=== PATIENT | male | born 1960 | race Caucasian/White ===

== ENCOUNTER → 2016-07-18 | Outpatient (CLI) | payer BC ==
[2016-07-18 08:48] LABS: CH 29.3; CHCM 35.6; HCT 39.8 % (39.0-53.0); HDW 3.11; MCH 29.1 pg (25.0-35.0); MCHC 35.2 g/dL (31.0-37.0); MCV 82.6 fL (80.0-100.0); Mean Platelet Volume 8.2; RBC 4.83 m/uL (4.30-5.90); WBC 5.6 k/uL (3.8-10.6)
[2016-07-18 09:18] LABS: ALT 35 U/L (21-72); AST 25 U/L (17-59); Alkaline Phosphatase 59 U/L (38-126); Anion Gap 10 mmol/L; Blood Urea Nitrogen 18 mg/dL (9-20); Calcium 9.5 mg/dL (8.4-10.2); Carbon Dioxide 28 mmol/L (22-30); Chloride 105 mmol/L (98-107); Cholesterol 299 mg/dL (<200); Glucose 134 mg/dL (74-99); HDL Cholesterol 37 mg/dL (40-60); Non-African American GFR(MDRD) >60 (>60 ml/min/1.73 sqM); Potassium 3.8 mmol/L (3.5-5.1); Sodium 143 mmol/L (137-145); Total Bilirubin 0.7 mg/dL (0.2-1.3); Total Protein 7.2 g/dL (6.3-8.2)
[2016-07-18 09:52] LABS: Triglycerides 1155 mg/dL (<150)
--- NOTE | 2016-07-18 10:42 | XR ---
EXAMINATION TYPE: XR Hip Complete RT DATE OF EXAM: 07/18/2016 8:49 AM COMPARISON: NONE HISTORY: Right hip pain, fall TECHNIQUE: 2V right hip FINDINGS: No acute fractures are evident. Femoral head articulates with the acetabulum. Joint spaces preserved. IMPRESSION: 1. Normal 2 view right hip
== END | disposition home or self-care (01) ==
LOC: LABWHC1 08:06
PROVIDERS: ATTEND Family Medicine
DX: M25.551 Pain in right hip (principal); F52.21 Male erectile disorder; I10 Essential (primary) hypertension
CPT/HCPCS: 36415; 73502; 80053; 80061; 84439; 84443; 85027

== ENCOUNTER → 2023-10-19 | Outpatient (CLI) | payer BC ==
[2023-10-19 18:29] LABS: Basophils # (A) 0.04 X 10*3/uL (0.00-0.10); Basophils % (A) 0.6 %; Eosinophils # (A) 0.14 X 10*3/uL (0.04-0.35); Eosinophils % (A) 2.1 %; HCT 35.3 % (39.6-50.0); HGB 12.2 g/dL (13.0-17.0); Lymphocytes # (A) 1.55 X 10*3/uL (0.90-5.00); Lymphocytes % (A) 23.5 %; MCH 29.2 pg (27.0-32.0); MCHC 34.6 g/dL (32.0-37.0); MCV 84.4 FL (80.0-97.0); Mean Platelet Volume 12.1 FL (9.5-12.2); Monocytes # (A) 0.49 X 10*3/uL (0.20-1.00); Monocytes % (A) 7.4 %; NRBC Per 100 WBC 0 X 10*3/uL (0.00-0.01); Neutrophils # (A) 4.35 X 10*3/uL (1.80-7.70); Neutrophils % (A) 65.9 %; Platelet Count 198 X 10*3/uL (140-440); RBC 4.18 X 10*6/uL (4.40-5.60); RDW 12.7 % (11.5-14.5)
== END | disposition home or self-care (01) ==
LOC: LABPAT 14:13
PROVIDERS: ATTEND Surgery
DX: Z01.818 Encounter for other preprocedural examination (principal); I49.3 Ventricular premature depolarization; K40.90 Unilateral inguinal hernia, without obstruction or gangrene, not specified as recurrent; R94.31 Abnormal electrocardiogram [ECG] [EKG]
CPT/HCPCS: 85025; 86850; 86900; 86901; 93005

== ENCOUNTER 2023-12-08 10:41 | Day surgery (SDC) | payer SELFPAY ==
[~2023-12-08 10:41] MED LIST: HYDROmorphone 0.5 MG/0.5 ML SYRINGE IVP PRN; LACTATED RINGERS 1,000 ML IV SCH; LIDOCAINE 1% (10MG/ML) FOR IV START INTRADERMA PRN; fentaNYL (PF) 50 MCG/ML 2 ML AMP IVP PRN
[2023-12-08 11:09] VITALS: TEMP 97.6
[2023-12-08] MEDS: IV FLUID CONTINUATION 1,000 ML IV ONE (11:22)
[2023-12-08 11:26] LABS: Glucose,Whole Blood 149 mg/dL (70-110)
[2023-12-08] MEDS: MIDAZOLAM 2 MG/2 ML VIAL IV PRN (11:44)
[2023-12-08] MEDS: HEPARIN SODIUM,PORCINE 5,000 UNIT/ML 1 ML VIAL SQ PRN (12:04)
[2023-12-08] MEDS: ONDANSETRON 4 MG/2 ML VIAL IVP ONE (12:04)
[2023-12-08] MEDS: DEXAMETHASONE SOD PHOSPHATE 4 MG/ML 1 ML VIAL IV ONE (12:04)
[2023-12-08] MEDS: ACETAMINOPHEN TAB 500 MG TAB PO PRN (12:06)
--- NOTE | 2023-12-08 12:13 | P.GSHP ---
History of Present Illness H&P Date: 12/08/23 Chief Complaint: Right inguinal hernia Is a 63-year-old male who has complaints of right groin pain. Patient was found to have a right inguinal hernia. Past Medical History Past Medical History: Diabetes Mellitus, Hyperlipidemia, Hypertension, Prostate Disorder Additional Past Medical History / Comment(s): bph, hernia to rt groin History of Any Multi-Drug Resistant Organisms: None Reported Past Surgical History: No Surgical Hx Reported Additional Past Anesthesia/Blood Transfusion Reaction / Comment(s): no hx of anesthesia Smoking Status: Never smoker - Past Family History Father Family Medical History: Hypertension, Myocardial Infarction ([place]) Mother Family Medical History: Cancer, Hypertension Additional Family Medical History / Comment(s): breast cancer Medications and Allergies Home Medications Medication Instructions Recorded Confirmed Type Atorvastatin [Lipitor] 20 mg PO DAILY 10/22/23 12/07/23 History Tamsulosin [Flomax] 0.4 mg PO DAILY 10/22/23 12/08/23 History Unk Aleve 1 tab PO DIRECTED PRN 10/22/23 12/07/23 History amLODIPine 10 mg PO DAILY 10/22/23 12/08/23 History cloNIDine HCL [Clonidine HCl] 0.1 mg PO TID 10/22/23 12/08/23 History hydrALAZINE HCL 50 mg PO TID 10/22/23 12/07/23 History metFORMIN HCL [metFORMIN HCL ER] 750 mg PO BID 10/22/23 12/07/23 History Allergies Allergy/AdvReac Type Severity Reaction Status Date / Time Penicillins Allergy Swelling Verified 12/08/23 11:00 wool Allergy rash, Verified 12/08/23 11:00 swelling Surgical - Exam Vital Signs Temp Pulse Resp BP Pulse Ox 97.6 F 83 18 154/80 97 12/08/23 11:06 12/08/23 11:06 12/08/23 11:06 12/08/23 11:06 12/08/23 11:06 - General well developed, well nourished, no distress - Eyes PERRL - ENT normal pinna - Neck no masses - Respiratory normal expansion - Cardiovascular Rhythm: regular - Abdomen Abdomen: soft, non tender Hernia: inguinal (Reducible right inguinal hernia) - Genitourinary normal penis with no external lesions Results - Labs Abnormal Lab Results - Last 24 Hours (Table) 12/08/23 Range/Units 11:19 POC Glucose (mg/dL) 149 H (70-110) mg/dL Assessment and Plan Assessment: Radial hernia. Will perform laparoscopic robotic assisted repair.
[2023-12-08] MEDS: LIDOCAINE 1%-EPI 1:100,000 20 ML VIAL SQ ONE ×2 (12:20)
--- NOTE | 2023-12-08 12:24 | P.ANPRN ---
Procedure Note - Anesthesia - Nerve Block Performed Bilateral Erector Spinae Single Time Out Performed: Yes Date of Procedure: 12/08/23 Procedure Start Time: 11:43 Procedure Stop Time: 11:48 Location of Patient: PreOp Indication: Acute Post-Operative Pain, Analgesia, Requested by Surgeon Sedation Type: Sedate with meaningful contact maintained Preparation: Sterile Prep Position: Prone Catheter: None Needle Types: Pajunk Needle Gauge: 21 Ultrasound used to visualize needle placement: Yes Ultrasound used to observe medication spread: Yes Injectate: 0.5% Ropivacaine (see comment for volume) (Ropiv 20ml+Decadron 4mg----Each side. Needle level T11) Blood Aspirated: No Pain Paresthesia on Injection Noted: No Resistance on Injection: Normal Image Stored and Saved: Yes Events: Uneventful and Well Tolerated
[2023-12-08] MEDS ORDERED: ROCURONIUM 10 MG/ML (5 ML VIAL) IV ONE (12:34)
[2023-12-08] MEDS ORDERED: GLYCOPYRROLATE 0.2 MG/ML 2 ML VIAL ONE (12:34)
[2023-12-08] MEDS ORDERED: PROPOFOL 10 MG/ML 20 ML VIAL IV ONE (12:34)
[2023-12-08] MEDS ORDERED: DEXAMETHASONE SOD PHOSPHATE 4 MG/ML 1 ML VIAL ONE (12:34)
[2023-12-08] MEDS ORDERED: LIDOCAINE 1% INJ 10MG/ML (20 ML MDV) ONE (12:34)
[2023-12-08] MEDS ORDERED: KETAMINE HCL IN 0.9 % NACL 50 MG/5 ML SYRINGE ONE (12:34)
[2023-12-08] MEDS ORDERED: KETOROLAC 15 MG/ML 1 ML VIAL ONE (12:34)
[2023-12-08] MEDS ORDERED: fentaNYL (PF) 50 MCG/ML 2 ML AMP ONE (12:34)
[2023-12-08] MEDS ORDERED: ROPIVACAINE 5 MG/ML 30 ML VIAL ONE (12:34)
[2023-12-08] MEDS ORDERED: NEOSTIGMINE 1 MG/ML 10 ML VIAL ONE (12:34)
[2023-12-08] MEDS ORDERED: SUCCINYLCHOLINE CHLORIDE 200 MG/10 ML VIAL IV ONE (12:34)
--- NOTE | 2023-12-08 13:35 | P.OP ---
Date of Procedure: 12/08/23 Preoperative Diagnosis: right inguinal hernia Postoperative Diagnosis: Right inguinal hernia Procedure(s) Performed: Laparoscopic robotic cy assisted t repair of right inguinal hernia Excision of cord lipoma Transversus abdominis plane block Anesthesia: CLARISSA Surgeon: Hector Romero Estimated Blood Loss (ml): 5 Pathology: other (Cord lipoma) Condition: stable Disposition: PACU Description of Procedure: The patient's placed on the operating table in the supine position. The patient received general anesthesia. The patient's abdomen was prepped and draped in usual sterile fashion. The skin was anesthetized 1% local Xylocaine at the incision sites. Using an 11 blade a skin incision was made at the umbilicus. The fascia was grasped with a [place] and then the peritoneal cavity was entered with the Veress needle. Position of the Veress needle was confirmed with a posi tive drop test. After adequate insufflation a 5 mm trocar was placed into the peritoneal cavity. The Laparoscope was placed the peritoneal cavity. And a robotic 8 mm trocar was placed in the right lateral position and then another 8 mm robotic trochars placed in the left lateral position. The original 5 mm trocar was exchanged for a 12 mm trocar. The patient was placed in reverse Trendelenburg and then the patient was docked to the robot. A four-quadrant transversus abdominis plane blocks were performed with a percent local Xylocaine. Next the peritoneum over top of the hernia was incised and then using blunt and sharp dissection and electrocautery the hernia sac was dissected free from the floor of the inguinal canal. The cord lipoma was dissected free sent to pathology. The hernia sac was completely reduced into the peritoneal cavity. And then using the Pro recreation attendant mesh the hernia was repaired. The peritoneum was then sutured with 20V lock suture. The patient was then undocked the robot. The needle was withdrawn from the peritoneal cavity. The umbilical trocar site was closed with 0 Ethibond suture. The skin was closed interrupted 3-0 Monocryl suture. Dermabond dressing was applied. Patient was sent to recovery in stable condition.
[2023-12-08 14:53] VITALS: RESP 16
[2023-12-08 15:58] VITALS: BP 152/75; PULSE 65
== END 2023-12-08 15:58 | disposition home or self-care (01) ==
LOC: OR 10:41
PROVIDERS: ATTEND Surgery
DX: K40.90 Unilateral inguinal hernia, without obstruction or gangrene, not specified as recurrent (principal); E78.5 Hyperlipidemia, unspecified; E11.9 Type 2 diabetes mellitus without complications; G89.18 Other acute postprocedural pain; I10 Essential (primary) hypertension; Z88.0 Allergy status to penicillin; Z79.899 Other long term (current) drug therapy
CPT/HCPCS: 49650; S2900; 64999; 88304

== ENCOUNTER → 2024-08-04 | Outpatient (CLI) | payer BC ==
--- NOTE | 2024-08-05 11:41 | MR ---
EXAMINATION TYPE: MR Prostate wo/w con DATE OF EXAM: 08/04/2024 6:58 AM COMPARISON: None. CLINICAL INDICATION: Male, 64 years old with history of R97.20 ELEVATED PSA; Elevated PSA. TECHNIQUE: Multi-planar, multi-sequence imaging of the pelvis is performed prior to and following the uncomplicated administration of bolus intravenous gadolinium. IV Contrast: 11 mL Gadobutrol Interpretive Criteria: PI-RADS v2.1 SERUM PSA: - = 4.90 8-9-24 = 4.91 SURGICAL PATHOLOGY: No data available. FINDINGS: Prostatic dimensions: 6.3 x 6.9 x 5.2 cm. Ellipsoid Volume:118.36 (PSA density=0.04 ng/mL/mL) CENTRAL GLAND (Central and Transition Zones/CZ+TZ): Multiple bilateral, heterogenous appearing hypertrophic stromal nodules, without suspicious lesion. M edian lobe hypertrophy with protrusion into the base of the bladder. (PI-RADS 2) PERIPHERAL ZONE (PZ): Bilateral linear, indistinct wedgelike areas of low ADC, and low T2 signal, No evidence of masslike a bnormality, or localized perfusional hypervascularity, to further suggest a focus of clinically signi ficant prostate cancer. (PI-RADS 2) SEMINAL VESICLES (SV): Symmetric and unremarkable. PERIPROSTATIC TISSUES: Unremarkable. LYMPH NODES: Prominent bilateral external iliac lymph nodes measuring up to 11 mm in short axis on the left and 10 mm on the right. Right inguinal lymph node measuring up to 14 mm in short axis. Left inguinal lymph node measuring up to 14 mm in short axis. REMAINING PELVIS: Bladder wall is within normal limits given distention. No abnormal free or organized intrapelvic fluid collection. No pathologic bowel dilation or mural thickening. Right fat containing inguinal hernia OSSEOUS STRUCTURES: No suspicious osseous abnormality. IMPRESSION: 1. No specific features for high-risk prostate cancer. Maximum PI-RADS score: 2. 2. Substantial BPH, estimated gland volume 118.36 (PSA density=0.04 ng/mL/mL) 3. Prominent bilateral lymph nodes in the external iliac and inguinal regions. Clinical correlation r ecommended. Consider short-term follow-up CT in 3 months for stability. 4. No suspicious osseous lesion. No evidence of prostate adenocarcinoma involving the periprostatic t issues. [facility], , 08/05/2024 11:39 AM
== END | disposition home or self-care (01) ==
LOC: RADMRIMAIN 06:00
PROVIDERS: ATTEND Urology
DX: R97.20 Elevated prostate specific antigen [PSA] (principal); I10 Essential (primary) hypertension; E11.9 Type 2 diabetes mellitus without complications; E78.5 Hyperlipidemia, unspecified; N40.0 Benign prostatic hyperplasia without lower urinary tract symptoms; R59.0 Localized enlarged lymph nodes
CPT/HCPCS: 72197; A9585